=== PATIENT | female | born 1955 | race Caucasian/White ===

== ENCOUNTER 2017-06-11 14:01 | Emergency (ER) | payer OTHER ==
[~2017-06-11] VITALS: Ht 149.9 cm; Wt 104.1 kg
[~2017-06-11 14:01] MED LIST: AMOX875T20 PO; ASPI-99 PO; CALC500T21 PO; CLIN200T PO; LEXA10TA PO; LORT5TAB PO; MAXZ25 PO; OMEP20TA PO; POTA-243 PO; PRED1TAB PO; SIMV40TA PO; SYNT88TA PO; VALI5TAB PO; VITA20003 PO; [UNRECOGNIZED DRUG - CODE] PO
[2017-06-11 14:08] VITALS: BP 155/71; PULSE 91; RESP 18; TEMP 97.8; O2SAT 95
[2017-06-11] MEDS ORDERED: ASPI81CH CHEW (14:39)
[2017-06-11] MEDS ORDERED: ESCI10TA PO (14:39)
[2017-06-11] MEDS ORDERED: OMEP40CA2 PO (14:39)
[2017-06-11] MEDS ORDERED: METF500T PO (14:39)
[2017-06-11] MEDS ORDERED: VENTAER INH (14:39)
[2017-06-11] MEDS ORDERED: BUSP5TAB PO (14:39)
[2017-06-11] MEDS ORDERED: TRIA37.5 PO (14:39)
[2017-06-11] MEDS ORDERED: ATOR1TAB18 PO (14:39)
[2017-06-11] MEDS ORDERED: FLUT50SP EACH NARE (14:39)
[2017-06-11] MEDS ORDERED: FOSA70TA PO (14:39)
[2017-06-11] MEDS ORDERED: FERR200T PO (14:39)
[2017-06-11] MEDS ORDERED: VITA500S3 SL (14:39)
[2017-06-11] MEDS ORDERED: PRED5TAB PO (14:39)
[2017-06-11] MEDS ORDERED: DIPH2.5T14 PO (14:39)
[2017-06-11] MEDS ORDERED: LISI-519 PO (14:39)
[2017-06-11] MEDS ORDERED: MONT10TA4 PO (14:39)
[2017-06-11] MEDS ORDERED: LEVO75TA3 PO (14:39)
--- NOTE | 2017-06-11 15:08 | PD ---
HPI Chief Complaint: Musculoskeletal Complaint Time Seen by Provider: 15:06 Travel History International Travel<30 days: No Contact w/Intl Traveler<30days: No Traveled to known affect area: No History of Present Illness HPI 62-year-old female with PMH of fibromyalgia, asthma, HTN presents to the ED for evaluation of 04/15 left scapular pain. Onset this morning upon waking up. Patient states that she went to bed at night normal as well as woke up multiple times with no problems. She states the pain is worsened by deep breathing and certain motions of the left arm. Denies numbness, tingling, weakness, limitations to range of motion of the arm. Denies chest pain, palpitations, shortness of breath, worsening nonproductive cough. She denies previous injury to the area. No treatment attempt at home. PFSH Past Medical History Arthritis: Yes (RHEUMATOID AND OSTEO) Asthma: Yes Depression: Yes Heart Rhythm Problems: No Cardiac Catheterization: No Cardiovascular Problems: Yes High Cholesterol: No Congestive Heart Failure: No Diabetes: Yes Diminished Hearing: No Hypertension: Yes Immune Disorder: Yes (FIBROMYALGIA) Musculoskeletal: Yes (OSTEOPOROSIS, SPINAL STENOSIS, DEGENERATIVE SPONDYLOSIS, SCIATICA) Respiratory: Yes Myocardial Infarction: No Thyroid Disease: Yes Past Surgical History Coronary Artery Bypass Graft: No Endocrine Surgery: Yes (THYROID REMOVED 1991) Hysterectomy: Yes (PARTIAL) Social History Alcohol Use: No Tobacco Use: No Substance Use: No Allergies-Medications (Allergen,Severity, Reaction): Coded Allergies: diltiazem (Unverified Allergy, Severe, HEART RACING/ANXIETY, 06/11/17) Sulfa (Sulfonamide Antibiotics) (Unverified Allergy, Mild, 06/11/17) metoclopramide (Unverified Allergy, Mild, 06/11/17) Reported Meds & Prescriptions Reported Meds & Active Scripts Active Doxycycline Hyclate 100 Mg Cap 100 Mg PO BID 5 Days Augmentin (Amoxicillin-Clavulanate) 500-125 mg Tab 2 G PO BID 5 Days Reported Feosol (Ferrous Sulfate) 325 Mg (65 Mg Iron) Tab 200 Mg PO DAILY Vitamin B-12 (Cyanocobalamin) 500 Mcg Subl 500 Mcg SL DAILY Fosamax (Alendronate Sodium) 70 Mg Tab 70 Mg PO Q7D Aspirin 81 Mg Chew 81 Mg CHEW DAILY Ventolin Hfa 18 GM Inh (Albuterol Sulfate) 90 Mcg/Act Aer 2 Puff INH Q4-6H PRN Diphenoxylate-Atropine 2.5-0.025 Mg Tab 1 Tab PO BID PRN Buspirone (Buspirone HCl) 5 Mg Tab 5 Mg PO BID Fluticasone Nasal [place] 50 Mcg/Act Naspr 50 Mcg EACH NARE DAILY 50 mcg/spray Lisinopril 5 Mg Tab 5 Mg PO DAILY Atorvastatin (Atorvastatin Calcium) 80 Mg Tab 80 Mg PO HS Montelukast (Montelukast Sodium) 10 Mg Tab 10 Mg PO HS Escitalopram (Escitalopram Oxalate) 10 Mg Tab 10 Mg PO BID Triamterene-Hydrochlorothiazide 37.5-25 Mg Tab 1 Tab PO DAILY Levothyroxine (Levothyroxine Sodium) 75 Mcg Tab 75 Mcg PO DAILY Omeprazole 40 Mg Cap 40 Mg PO DAILY Metformin (Metformin HCl) 500 Mg Tab 500 Mg PO BIDPC With meals Prednisone 5 Mg Tab 6 Mg PO DAILY Review of Systems Except as stated in HPI: all other systems reviewed are Neg Physical Exam Narrative GENERAL: Well-nourished, well-developed obese white female in no acute distress. SKIN: Focused skin assessment warm/dry. HEAD: Normocephalic. EYES: No scleral icterus. No injection or drainage. NECK: Supple, trachea midline. No JVD or lymphadenopathy. CARDIOVASCULAR: Regular rate and rhythm without murmurs, gallops, or rubs. RESPIRATORY: Breath sounds equal bilaterally. No accessory muscle use. GASTROINTESTINAL: Abdomen soft, non-tender, nondistended. MUSCULOSKELETAL: No cyanosis, or edema. FOCUSED LEFT UPPER EXTREMITY EXAM: 2+ radial pulse. No tenderness to palpation over the acromioclavicular joint or the humerus. Patient retains full, active, painless R Silver of the shoulder and elbow joints. Neurovascularly intact. BACK: No obvious deformity. No CVA tenderness. Tender to palpation along the medial aspect of the left scapula. Data Data Last Documented VS Vital Signs Date Time Temp Pulse Resp B/P (MAP) Pulse Ox O2 Delivery O2 Flow Rate FiO2 06/11/17 14:08 97.8 91 18 155/71 (99) 95 Orders Orders Scapula (06/11/17 ) Chest, Pa & Lat (06/11/17 ) MDM Medical Decision Making Medical Screen Exam Complete: Yes Emergency Medical Condition: Yes Differential Diagnosis Fibromyalgia versus muscle spasm versus PNA versus other Narrative Course 62-year-old female with PMH of fibromyalgia, asthma, HTN presents to the ED for evaluation of 7/10 left scapular pain. Onset this morning upon waking up. Pain is worsened by deep breathing and certain motions of the left arm. Denies numbness, tingling, weakness, limitations to range of motion of the arm. Denies chest pain, palpitations, shortness of breath, worsening nonproductive cough. She denies previous injury to the area. Vitals reviewed. Physical exam reveals point tenderness to palpation along the medial aspect of the left scapula. Breath sounds are clear and equal bilaterally. Scapular x-ray reveals focal consolidation in the lung suspicious for pneumonia. CXR AP and lateral reveal bilateral infiltrates left worse than right. This is community acquired pneumonia. Patient has multiple medical interactions. She was prescribed 2 g Augmentin twice a day 5 days. Plus doxycycline 100 mg twice a day 5 days. Treatment based on [facility]. Patient was instructed to stop taking iron supplements during this time. She was encouraged to use antidiarrheal as needed. She instructed to take the medication as prescribed, follow up with her primary care provider. She indicated understanding of instructions and is agreeable to the care plan. The patient is stable and discharged home. Diagnosis Primary Impression: Community acquired pneumonia Qualified Codes: J18.9 - Pneumonia, unspecified organism Referrals: Primary Care Physician Patient Instructions: Community Acquired Pneumonia (ED), General Instructions Additional Instructions: Rest, hydrate. Take all antibiotics as prescribed, even if your symptoms resolve. Stop taking your iron pills while taking doxycycline. Maximum dose of Lomotil is 5 mg daily. Follow up with your primary care provider early this week. Return to the ED for worsening symptoms or any urgent or emergent medical condition. Med/Other Pt SpecificInfo: Prescription(s) given Scripts Doxycycline Hyclate (Doxycycline Hyclate) 100 Mg Cap 100 MG PO BID for Infection for 5 Days, CAP 0 Refills Prov: Nallely Pineda DO 06/11/17 Amoxicillin-Clavulanate (Augmentin) 500-125 mg Tab 2 G PO BID for Infection for 5 Days, TAB 0 Refills Prov: Nallely Pineda DO 06/11/17 Disposition: 01 DISCHARGE HOME Condition: Stable Gretta Delgado Jun 11, 2017 15:08
--- NOTE | 2017-06-11 17:07 | RADRPT ---
EXAM DATE/TIME: 06/11/2017 16:39 [facility] COMPARISON: No previous studies available for comparison. INDICATIONS : Left shoulder pain today. Patient woke up with the pain; no injury. MEDICAL HISTORY : None. SURGICAL HISTORY : None. ENCOUNTER: Initial ACUITY: 1 day PAIN SCORE: 6/10 LOCATION: Left shoulder. FINDINGS: Two view examination of the left scapula demonstrates no evidence of fracture. The glenohumeral and acromioclavicular joints are maintained. Bony mineralization is normal. A suspected faint infiltrate seen laterally in the left mid-upper lung. CONCLUSION: No acute abnormality of the left shoulder but possible pneumonia in the left upper lobe. 2 view chest x-ray examination recommended. Herman Larios MD on June 11, 2017 at 17:04 Board Certified Radiologist. This report was verified electronically.
--- NOTE | 2017-06-11 17:47 | RADRPT ---
EXAM DATE/TIME: 06/11/2017 17:37 [facility] COMPARISON: No previous studies available for comparison. INDICATIONS : Left shoulder pain since this morning. Patient woke up with the pain, no injury. MEDICAL HISTORY : None. SURGICAL HISTORY : None. ENCOUNTER: Initial ACUITY: 1 day PAIN SCORE: 6/10 LOCATION: Left posterior shoulder. FINDINGS: There is mild infiltrate in the left mid and lower lung. Minimal parenchymal opacity at the right michael g base. No evidence of effusion. Cardiac contours are grossly satisfactory. Thoracic skeleton is inta ct. CONCLUSION: Bilateral infiltrates, left worse than right Herman Escalante MD on June 11, 2017 at 17:45 Board Certified Radiologist. This report was verified electronically.
[2017-06-11] MEDS ORDERED: LEVOFLOXACIN 750 MG TAB PO ONE (18:00)
[2017-06-11] MEDS ORDERED: DOXY100C PO (18:23)
[2017-06-11] MEDS ORDERED: AUGM500T7 PO (18:23)
== END 2017-06-11 18:29 | disposition home or self-care (01) ==
LOC: PHEFT 14:01
DX: J18.9 Pneumonia, unspecified organism (principal); M79.7 Fibromyalgia; I10 Essential (primary) hypertension; J45.909 Unspecified asthma, uncomplicated; E11.9 Type 2 diabetes mellitus without complications; M47.9 Spondylosis, unspecified; M81.0 Age-related osteoporosis without current pathological fracture; E07.9 Disorder of thyroid, unspecified; Z79.899 Other long term (current) drug therapy
CPT/HCPCS: 71020; 73010; 99284

== ENCOUNTER 2018-07-17 11:25 | Observation (INO) ==
[2018-07-17] MEDS ORDERED: MethylPREDNISolone Sod Succinate Inj 125 MG/2 ML Vial IV.PUSH ONE (11:53)
--- NOTE | 2018-07-17 12:01 | ED ---
HPI General Chief Complaint: Respiratory Symptoms Stated Complaint: SOB/poss pneumonia x 1 week Time Seen by Provider: 07/17/18 11:46 Source: patient Mode of arrival: ambulatory Limitations: no limitations History of Present Illness MD Complaint: Reports shortness of breath Onset (ago): day(s) (3) Context: Reports recent illness (She states that it started with a GI illness including nausea, vomiting and diarrhea. Onset of the symptoms was 5 days ago.) Consistency/Duration: constant and progressively worsening Relieving factors: nothing Exacerbating factors: nothing Known history of: Reports asthma Associated symptoms: Reports fever, cough, wheezing, sputum production and other (Dyspnea on exertion); Denies chest pain Treatment prior to arrival: Reports other (Levaquin for the last 2 days) Related Data Home Medications Medication Instructions Recorded Confirmed alendronate 1 tab PO WEEKLY 07/17/18 07/17/18 aspirin [Aspirin Low Dose] 1 tab PO DAILY 07/17/18 07/17/18 atorvastatin 1 tab PO DAILY 07/17/18 07/17/18 buspirone 1 tab PO BID 07/17/18 07/17/18 diphenoxylate-atropine 1 tab PO BID PRN 07/17/18 07/17/18 escitalopram oxalate 10 mg PO DAILY 07/17/18 07/17/18 fluticasone 1 spray INHALATION DAILY 07/17/18 07/17/18 isosorbide mononitrate 1 tab PO DAILY 07/17/18 07/17/18 levofloxacin [Levaquin] 500 mg PO DAILY 07/17/18 07/17/18 levothyroxine 1 tab PO DAILY 07/17/18 07/17/18 lisinopril 2.5 mg PO DAILY 07/17/18 07/17/18 metformin 1 tab PO BID 07/17/18 07/17/18 montelukast 10 mg PO QPM 07/17/18 07/17/18 nitroglycerin [Nitrostat] 1 tab SUBLINGUAL DAILY PRN 07/17/18 07/17/18 omeprazole 1 cap PO DAILY 07/17/18 07/17/18 prednisone 6 mg PO DAILY 07/17/18 07/17/18 triamterene-hydrochlorothiazid 1 tab PO DAILY 07/17/18 07/17/18 Allergies Allergy/AdvReac Type Severity Reaction Status Date / Time diltiazem Allergy Severe HEART Verified 07/17/18 11:48 RACING/ANXIETY metoclopramide Allergy Mild Shortness Verified 07/17/18 11:48 of Breath Sulfa (Sulfonamide Allergy Mild Hives Verified 07/17/18 11:48 Antibiotics) Review of Systems ROS: all other systems reviewed are negative [facility] Medical History Medical History Arthritis (Acute) Asthma (Acute) Coronary artery disease (Acute) Depression (Acute) Diabetes (Acute) Fibromyalgia (Acute) Gastroparesis (Acute) H/O: hysterectomy (Acute) High cholesterol (Acute) Hypertension (Acute) Hypothyroid (Acute) IBS (irritable bowel syndrome) (Acute) Surgical History Surgical History H/O elbow surgery (Acute) Hx of cholecystectomy (Acute) S/P gastric surgery (Acute) Social History Social History Substance History: No History of Abuse Second Hand Smoke Exposure: No Smoking Status: Former smoker How Often Do You Have a Drink Containing Alcohol: Never Recent Travel in [facility] within the Last 8 Weeks: No Recent Out of Country Travel within the Last 8 Weeks: No Immunization History Tetanus Immunization: Unsure Exam Const General: cooperative, healthy appearing, comfortable, no acute distress, well developed and well groomed Orientation: alert, awake and oriented x3 HENMT Head: normal to inspection, normocephalic and atraumatic Eyes Alignment and Position: alignment normal Conjunctivae: conjunctivae normal Sclera: sclerae normal EOM: EOM intact bilaterally Neck Neck: normal visual inspection and full ROM Chest Chest: normal inspection of the chest Resp Effort & Inspection: normal respiratory effort, able to speak in complete sentences, audible wheezes and cough Auscultation: diminished lung sounds and wheezes (I/E) Cardio Rate: tachycardic Rhythm: regular rhythm GI Inspection: normal to inspection Palpation: soft Back/Spine/Pelvis Cervical Spine: cervical ROM normal Thoracic/Lumbar Spine: thoraco-lumbar ROM normal Skin General: no rashes or lesions noted and turgor normal Neuro General: alert, awake, oriented x3, moves all extremities and CN's II-XI intact bilaterally Extrem General: normal to inspection and full ROM Psych Appearance: grossly normal Mental Status: mental status grossly normal Speech and Movement: speech and movement normal Mood: congruent mood Affect: normal affect Attitude: cooperative Thought Process: normal Thought Content: normal Judgment: judgment good Course Hospital Course: The patient has been rechecked several times here in the emergency department. She continues to have diffuse I&E wheezing. Her air movement is improved but she continues to have a modest hypoxia at about 90%. The hypoxia is acutely worsened just by the act of sitting up. She dropped down into the upper 70s following neb treatments when I asked her to sit up for recheck. She needs to be admitted to the hospital for further respiratory therapy. Consultations Consultation #1: Dr. Silver mckee admit Time: 14:13 Initial Documented Vital Signs Temperature 98.3 F 07/17/18 11:29 Pulse Rate 126 H 07/17/18 11:29 Respiratory Rate 20 07/17/18 11:29 Blood Pressure 180/80 H 07/17/18 11:29 Pulse Oximetry 95 07/17/18 11:29 Last Documented Vital Signs Temperature 98.3 F 07/17/18 11:29 Pulse Rate 106 H 07/17/18 13:12 Respiratory Rate 20 07/17/18 13:12 Blood Pressure 147/77 H 07/17/18 12:18 Pulse Oximetry 97 07/17/18 13:02 Critical Care Time Critical Care Time: Yes Total Critical Care Time: 45 Attestation: Time to perform other separately billable procedures was not included in the critical care time. My time did not include minutes spent treating any other patients simultaneously or on activities that did not directly contribute to the patient's treatment. The services I provided to this patient were to treat and/or prevent clinically significant deterioration due to respiratory distress with hypoxia and bronchospasm I provided critical care services requiring my management, as noted below: Chart data review, documentation time, medication orders and management, vital sign assessments/reviewing monitor data, ordering and reviewing lab tests, ordering and interpreting/reviewing x-rays and diagnostic studies, care of the patient and discussion of the patient with the admitting physicians Medical Decision Making MDM Narrative Medical decision making narrative: Patient presents complaining with cough and shortness of breath. She has a history of asthma. She has audible wheezing on exam. She will be treated with 3 duo nebs and Solu-Medrol. Pneumonia workup is in process. I will also check a BNP. Medical Screen Exam Complete: Yes Emergency Medical Condition: Yes Differential Diagnosis Differential Diagnosis: Differential diagnosis of dyspnea includes but is not limited to congestive heart failure, pneumonia, wheezing, pneumothorax, pulmonary embolism Medical Records Medical records reviewed: Yes I reviewed the patient's medical records. History of asthma and previous community-acquired pneumonia which was treated as an outpatient. Lab Data Lab results reviewed: Yes I reviewed the patient's lab results. Result diagrams: 07/17/18 12:00 07/17/18 12:00 Lab Results 07/17/18 07/17/18 07/17/18 Range/Units 12:00 12:00 12:00 CBC w Diff Auto diff final WBC 5.8 (4.0-11.0) th/mm3 RBC 4.46 (4.00-5.30) mil/mm3 Hgb 13.9 (11.6-15.3) gm/dL Hct 41.1 (35.0-46.0) % MCV 92.1 (80.0-100.0) fL MCH 31.2 (27.0-34.0) pg MCHC 33.8 (32.0-36.0) % RDW 13.6 (11.6-17.2) % Plt Count 226 (150-450) th/mm3 MPV 7.2 (7.0-11.0) fL Neut % (Auto) 41.4 (16.0-70.0) % Lymph % (Auto) 42.8 (9.0-44.0) % [place] % (Auto) 11.2 H (0.0-8.0) % Eos % (Auto) 3.6 (0.0-4.0) % Baso % (Auto) 1.0 (0.0-2.0) % Neut # (Auto) 2.4 (1.8-7.7) th/mm3 Lymph # (Auto) 2.5 (1.0-4.8) th/mm3 [place] # (Auto) 0.6 (0.0-0.9) th/mm3 Eos # (Auto) 0.2 (0.0-0.4) th/mm3 Baso # (Auto) 0.1 (0.0-0.2) th/mm3 WBC Differential . Differential Comment . Sodium 142 (136-145) meq/L Potassium 3.0 L (3.5-5.1) meq/L Chloride 102 (98-107) meq/L Carbon Dioxide 27.7 (21.0-32.0) meq/L Anion Gap 12 (5-15) meq/L BUN 11 (7-18) mg/dL Creatinine 1.40 H (0.50-1.00) mg/dL Estimated GFR 38 L (>89) mL/min Random Glucose 150 H (74-106) mg/dL Lactic Acid (0.4-2.0) mmol/L Calcium 6.7 L* (8.5-10.1) mg/dL Prot Corrected Calcium 7.1 L* (8.5-10.1) mg/dL Troponin I Less than 0.02 L (0.02-0.05) ng/mL B-Natriuretic Peptide 20 (0-100) pg/mL Total Protein 6.4 (6.4-8.2) g/dL 07/17/18 Range/Units 12:00 CBC w Diff WBC (4.0-11.0) th/mm3 RBC (4.00-5.30) mil/mm3 Hgb (11.6-15.3) gm/dL Hct (35.0-46.0) % MCV (80.0-100.0) fL MCH (27.0-34.0) pg MCHC (32.0-36.0) % RDW (11.6-17.2) % Plt Count (150-450) th/mm3 MPV (7.0-11.0) fL Neut % (Auto) (16.0-70.0) % Lymph % (Auto) (9.0-44.0) % [place] % (Auto) (0.0-8.0) % Eos % (Auto) (0.0-4.0) % Baso % (Auto) (0.0-2.0) % Neut # (Auto) (1.8-7.7) th/mm3 Lymph # (Auto) (1.0-4.8) th/mm3 [place] # (Auto) (0.0-0.9) th/mm3 Eos # (Auto) (0.0-0.4) th/mm3 Baso # (Auto) (0.0-0.2) th/mm3 WBC Differential Differential Comment Sodium (136-145) meq/L Potassium (3.5-5.1) meq/L Chloride (98-107) meq/L Carbon Dioxide (21.0-32.0) meq/L Anion Gap (5-15) meq/L BUN (7-18) mg/dL Creatinine (0.50-1.00) mg/dL Estimated GFR (>89) mL/min Random Glucose (74-106) mg/dL Lactic Acid 3.9 H (0.4-2.0) mmol/L Calcium (8.5-10.1) mg/dL Prot Corrected Calcium (8.5-10.1) mg/dL Troponin I (0.02-0.05) ng/mL B-Natriuretic Peptide (0-100) pg/mL Total Protein (6.4-8.2) g/dL Imaging Data Attestation: I personally reviewed and interpreted this imaging study as follows : Radiologist's impression: Chest X-Ray 07/17/18 11:53 CONCLUSION: 1. Suspect artifactually increased opacity in the left lung base. If patient has physical exam findings corresponding to the left lower lung riggs, consider formal PA and lateral views of the chest. Discharge Plan Discharge Disposition Patient Disposition: 30 Still Patient Discharge Details Diagnosis: Acute respiratory distress, Bronchitis, Hypoxia Physicians Team ED Provider: Letty Jaramillo Primary Care Provider: UNKNOWN, Rxs /Orders / Referrals /Forms Prescriptions: No Action metformin 500 mg Tablet 1 tab PO BID RF: 0 fluticasone 50 mcg/actuation Blister With Device 1 spray Inhalation DAILY RF: 0 atorvastatin 80 mg Tablet 1 tab PO DAILY RF: 0 isosorbide mononitrate 30 mg Tablet Extended Release 24 Hr 1 tab PO DAILY RF: 0 alendronate 70 mg Tablet 1 tab PO WEEKLY RF: 0 diphenoxylate-atropine 2.5-0.025 mg Tablet 1 tab PO BID PRN (Reason: Diarrhea) RF: 0 omeprazole 40 mg Capsule,Delayed Release(Dr/Ec) 1 cap PO DAILY RF: 0 aspirin [Aspirin Low Dose] 81 mg Tablet,Delayed Release (Dr/Ec) 1 tab PO DAILY RF: 0 levothyroxine 88 mcg Tablet 1 tab PO DAILY RF: 0 buspirone 10 mg Tablet 1 tab PO BID RF: 0 nitroglycerin [Nitrostat] 0.4 mg Tablet, Sublingual 1 tab Sublingual DAILY PRN (Reason: Chest Pain) RF: 0 triamterene-hydrochlorothiazid 37.5-25 mg Tablet 1 tab PO DAILY RF: 0 montelukast 10 mg Tablet 10 mg PO QPM RF: 0 lisinopril 2.5 mg Tablet 2.5 mg PO DAILY RF: 0 escitalopram oxalate 10 mg Tablet 10 mg PO DAILY RF: 0 prednisone 6 mg PO DAILY RF: 0 levofloxacin [Levaquin] 500 mg Tablet 500 mg PO DAILY RF: 0 Discharge Interventions Interventions: Vital Signs Last Done: 07/17/18 12:18 Status ED Status: With Doctor
[2018-07-17 12:10] LABS: Baso # (Auto) 0.1 th/mm3 (0.0-0.2); Eos # (Auto) 0.2 th/mm3 (0.0-0.4); Eos % (Auto) 3.6 % (0.0-4.0); Hematocrit 41.1 % (35.0-46.0); Hemoglobin 13.9 gm/dL (11.6-15.3); Lymph # (Auto) 2.5 th/mm3 (1.0-4.8); Lymph % (Auto) 42.8 % (9.0-44.0); Mean Corpuscular HGB Conc 33.8 % (32.0-36.0); Mean Corpuscular Hemoglobin 31.2 pg (27.0-34.0); Mean Corpuscular Volume 92.1 fL (80.0-100.0); Mean Platelet Volume 7.2 fL (7.0-11.0); Mono # (Auto) 0.6 th/mm3 (0.0-0.9); Mono % (Auto) 11.2 % (0.0-8.0); Neut # (Auto) 2.4 th/mm3 (1.8-7.7); Neut % (Auto) 41.4 % (16.0-70.0); Platelet Count 226 th/mm3 (150-450); Red Blood Count 4.46 mil/mm3 (4.00-5.30); Red Cell Distribution Width 13.6 % (11.6-17.2); White Blood Count 5.8 th/mm3 (4.0-11.0)
[2018-07-17 12:17] LABS: Chloride 102 meq/L (98-107); Sodium 142 meq/L (136-145)
[2018-07-17 12:51] LABS: Anion Gap 12 meq/L (5-15); Blood Urea Nitrogen 11 mg/dL (7-18); Calcium 6.7 mg/dL (8.5-10.1); Carbon Dioxide 27.7 meq/L (21.0-32.0); Glomerular Filtration Rate 38 mL/min (>89); Glucose,Random 150 mg/dL (74-106)
--- NOTE | 2018-07-17 13:02 | XR ---
EXAM DATE: 07/17/2018 11:53 AM EDT AGE/SEX: 63 years / Female INDICATIONS: Short of breath. Flu like symptoms x 6 days. Patient states she becomes winded walking across room. CLINICAL DATA: This is the patient's initial encounter. Patient reports that signs and symptoms have been present for 4 - 6 days and indicates a pain score of 0/10. MEDICAL/SURGICAL HISTORY: Hypercholesterolemia. Gastroparesis. Irritable bowel syndrome. Art hrits. Asthma. CAD. Diabetes. Fibromyalgia. Hypertension. Hypothyroid. Hysterectomy. Cholecystectom y. COMPARISON: POI, XR CHEST PA AND LAT, 07/19/2017. . FINDINGS: Mild increased opacity at the left lung base likely artifactual from breast shadow and patient positi oning. Otherwise, no new focal pleural or parenchymal opacities. The cardiomediastinal contours are u nremarkable. Osseous structures are intact. CONCLUSION: 1. Suspect artifactually increased opacity in the left lung base. If patient has physical exam findi ngs corresponding to the left lower lung riggs, consider formal PA and lateral views of the chest. Electronically signed by: Prudencio Barlow MD 07/17/2018 1:01 PM EDT
[2018-07-17 13:23] LABS: Total Protein 6.4 g/dL (6.4-8.2)
[2018-07-17] MEDS ORDERED: Acetaminophen 325 MG Tablet PO PRN (14:29)
[2018-07-17] MEDS ORDERED: Dextrose 50% in Water 50 ML Vial IV.PUSH PRN (14:50)
--- NOTE | 2018-07-17 15:01 | P.HP ---
History of Present Illness Primary Care Physician: UNKNOWN Chief Complaint: Shortness of breath History of Present Illness: 63-year-old female for past medical history of diabetes, inflammatory bowel disease, inflammatory arthritis and was recently started on p.o. antibiotic for suspected pneumonia since July 15, 2018 presented to the ED for evaluation of worsening respiratory failure with increasing shortness of breath associated with wheezing and non-productive. Patient states, she was prescribed Levaquin on day 9 for suspected pneumonia. She initially got sick since Saturday, July 12, 2018. She is suspected flulike symptoms however was diagnosed with possible pneumonia by her PCP who prescribed Levaquin. Patient presented to the ED today because of increasing shortness of breath, generalized fatigue and lack of energy. She denies any febrile episode. While in the ED, despite albuterol treatment, patient continued to have significant shortness of breath. She was also found to be hypoxemic - Diagnosis (1) Asthma exacerbation (2) COPD exacerbation (3) Acute respiratory distress (4) Hypoxia Inpatient Certification: I certify that the inpatient services were ordered in accordance with Medicare regulations governing the order. This includes certification that hospital inpatient services are reasonable and necessary and in the case of services not specified as inpatient-only under 42 CFR 419.22(n), that they are appropriately provided as inpatient services in accordance to with the 2-midnight benchmark under 43 CFR 412.3(e) Review of Systems All other systems reviewed negative except as stated in HPI PMFSH - History History Provided By: Patient - Medical History Medical History: Medical History (Last Reviewed 07/17/18 @ 11:58 by Letty Jaramillo) Arthritis Asthma Coronary artery disease Depression Diabetes Fibromyalgia Gastroparesis H/O: hysterectomy High cholesterol Hypertension Hypothyroid IBS (irritable bowel syndrome) - Surgical History Surgical History: Surgical History (Last Updated 07/17/18 @ 11:52 by Cadence Velazquez RN) H/O elbow surgery Hx of cholecystectomy S/P gastric surgery - Family History Family History: Family History (Last Updated 07/17/18 @ 14:57 by Ronal Sheppard MD) Other No history of heart disease - Tobacco History Second Hand Smoke Exposure: No Tobacco Use In Past 30 Days: No Smoking Status: Former smoker - Alcohol History How Often Do You Have a Drink Containing Alcohol: Never - Substance Use History Substance History: No History of Abuse - Travel History Recent Travel in the [place] Within the Last 8 Weeks: No Recent Travel Out of the Country Within the Last 8 Weeks: No - Immunization History Tetanus Immunization: Unsure Medications and Allergies Active Medications: Active Medications Acetaminophen (Tylenol) 650 mg PO Q4H PRN PRN Reason: Temp > 100.4 Al Hydroxide/Mg Hydroxide (Milk Of Magntracey Liq) 30 ml PO Q12H PRN PRN Reason: Mild Constipation Albuterol (Duoneb Neb (Mili)) 1 ampul NEB Q6HR WHILE AWAKE NEB MILI Albuterol (Duoneb Neb (Prn)) 1 ampul NEB Q2HR NEB PRN PRN Reason: SHORTNESS OF BREATH Albuterol (Duoneb Neb (Mili)) 1 ampul NEB Q15M MILI Stop: 07/17/18 15:16 Aspirin (Ecotrin) 81 mg PO DAILY [facility] Atorvastatin Calcium (Lipitor) 80 mg PO DAILY [facility] Azithromycin (Zithromax) 250 mg PO DAILY [facility] Budesonide/Formoterol Fumarate (Symbicort 160/4.5 Mcg Inh) 2 puff INH BID [facility] Buspirone HCl (Buspar) 10 mg PO BID [facility] Dextrose (D50w Vial) 50 ml IV.PUSH UNSCH PRN PRN Reason: PER HYPOGLYCEMIA PROTOCOL Escitalopram Oxalate (Lexapro) 10 mg PO DAILY [facility] Glucagon (Glucagon Inj) 1 mg OTHER PRN PRN PRN Reason: for Hypoglycemia Protocol Guaifenesin (Mucinex Er) 600 mg PO BID [facility] Insulin Aspart (Novolog Insulin Correctional Sugar Inj) 0 unit SQ ACHS MILI; Protocol Isosorbide Mononitrate (Imdur) 30 mg PO DAILY [facility] Levothyroxine Sodium (Synthroid) 88 mcg PO DAILY [facility] Metformin HCl (Glucophage) 500 mg PO BID [facility] Methylprednisolone Sodium Succinate (Solumedrol Inj) 40 mg IV.PUSH Q8HR [facility] Montelukast Sodium (Singulair) 10 mg PO QPM [facility] Non-Formulary Medication (Fluticasone [Fluticasone]) 1 spray INHALATION DAILY [facility] Non-Formulary Medication (Omeprazole [Omeprazole]) 1 cap PO DAILY [facility] Non-Formulary Medication (Lisinopril [Lisinopril]) 2.5 mg PO DAILY [facility] Ondansetron HCl (Zofran Inj) 4 mg IV.PUSH Q6H PRN PRN Reason: NAUSEA OR VOMITING Tiotropium [place] (Spiriva 18 Mcg Inh) 18 mcg INH DAILY [facility] Triamterene/HCTZ (Maxzide 37.5 Mg-25 Mg) 1 tab PO DAILY [facility] Allergies Allergy/AdvReac Type Severity Reaction Status Date / Time diltiazem Allergy Severe HEART Verified 07/17/18 11:48 RACING/ANXIETY metoclopramide Allergy Mild Shortness Verified 07/17/18 11:48 of Breath Sulfa (Sulfonamide Allergy Mild Hives Verified 07/17/18 11:48 Antibiotics) Home Medications Medication Instructions Recorded Confirmed Type alendronate 1 tab PO WEEKLY 07/17/18 07/17/18 History aspirin [Aspirin Low Dose] 1 tab PO DAILY 07/17/18 07/17/18 History atorvastatin 1 tab PO DAILY 07/17/18 07/17/18 History buspirone 1 tab PO BID 07/17/18 07/17/18 History diphenoxylate-atropine 1 tab PO BID PRN 07/17/18 07/17/18 History escitalopram oxalate 10 mg PO DAILY 07/17/18 07/17/18 History fluticasone 1 spray INHALATION DAILY 07/17/18 07/17/18 History isosorbide mononitrate 1 tab PO DAILY 07/17/18 07/17/18 History levofloxacin [Levaquin] 500 mg PO DAILY 07/17/18 07/17/18 History levothyroxine 1 tab PO DAILY 07/17/18 07/17/18 History lisinopril 2.5 mg PO DAILY 07/17/18 07/17/18 History metformin 1 tab PO BID 07/17/18 07/17/18 History montelukast 10 mg PO QPM 07/17/18 07/17/18 History nitroglycerin [Nitrostat] 1 tab SUBLINGUAL DAILY PRN 07/17/18 07/17/18 History omeprazole 1 cap PO DAILY 07/17/18 07/17/18 History prednisone 6 mg PO DAILY 07/17/18 07/17/18 History triamterene-hydrochlorothiazid 1 tab PO DAILY 07/17/18 07/17/18 History Exam Vital signs: Vital Signs 07/17/18 11:29 07/17/18 12:10 07/17/18 12:18 Temperature 98.3 F Pulse Rate 126 H 85 95 H Respiratory Rate 20 20 20 Blood Pressure 180/80 H 149/75 H 147/77 H Pulse Oximetry 95 95 96 07/17/18 12:20 07/17/18 12:31 07/17/18 12:49 Temperature Pulse Rate 98 H 99 H 106 H Respiratory Rate 18 20 18 Blood Pressure Pulse Oximetry 07/17/18 13:00 07/17/18 13:02 07/17/18 13:12 Temperature Pulse Rate 106 H Respiratory Rate 20 Blood Pressure Pulse Oximetry 89 L 97 Intake & Output 07/16/18 07/17/18 07/17/18 18:59 06:59 18:59 Weight 92 kg Other: # Voids 1 Narrative: GENERAL: NAD SKIN: Warm and dry. HEAD: Atraumatic. Normocephalic. EYES: Pupils equal and round. No scleral icterus. No injection or drainage. ENT: No nasal bleeding or discharge. Mucous membranes pink and moist. NECK: Trachea midline. No JVD. CARDIOVASCULAR: Regular rate and rhythm. RESPIRATORY: No accessory muscle use. Clear to auscultation. Breath sounds decrease bilaterally. +exp bilateral wheezing GASTROINTESTINAL: Abdomen soft, non-tender, nondistended. Hepatic and splenic margins not palpable. MUSCULOSKELETAL: Extremities without clubbing, cyanosis, or edema. No obvious deformities. NEUROLOGICAL: Awake and alert. No obvious cranial nerve deficits. Motor grossly within normal limits. Five out of 5 muscle strength in the arms and legs. Normal speech. PSYCHIATRIC: Appropriate mood and affect; insight and judgment normal. Results - Labs CBC & Chem 7: 07/17/18 12:00 07/17/18 12:00 Labs: Laboratory Results - last 24 hr 07/17/18 07/17/18 07/17/18 12:00 12:00 12:00 CBC w Diff Auto diff final WBC 5.8 RBC 4.46 Hgb 13.9 Hct 41.1 MCV 92.1 MCH 31.2 MCHC 33.8 RDW 13.6 Plt Count 226 MPV 7.2 Neut % (Auto) 41.4 Lymph % (Auto) 42.8 Stephenson % (Auto) 11.2 H Eos % (Auto) 3.6 Baso % (Auto) 1.0 Neut # (Auto) 2.4 Lymph # (Auto) 2.5 Stephenson # (Auto) 0.6 Eos # (Auto) 0.2 Baso # (Auto) 0.1 WBC Differential . Differential Comment . Sodium 142 Potassium 3.0 L Chloride 102 Carbon Dioxide 27.7 Anion Gap 12 BUN 11 Creatinine 1.40 H Estimated GFR 38 L Random Glucose 150 H Lactic Acid Calcium 6.7 L* Prot Corrected Calcium 7.1 L* Troponin I Less than 0.02 L B-Natriuretic Peptide 20 Total Protein 6.4 07/17/18 07/17/18 12:00 14:20 CBC w Diff WBC RBC Hgb Hct MCV MCH MCHC RDW Plt Count MPV Neut % (Auto) Lymph % (Auto) Stephenson % (Auto) Eos % (Auto) Baso % (Auto) Neut # (Auto) Lymph # (Auto) Stephenson # (Auto) Eos # (Auto) Baso # (Auto) WBC Differential Differential Comment Sodium Potassium Chloride Carbon Dioxide Anion Gap BUN Creatinine Estimated GFR Random Glucose Lactic Acid 3.9 H 4.8 H* Calcium Prot Corrected Calcium Troponin I B-Natriuretic Peptide Total Protein - Imaging Impressions Chest X-Ray 07/17/18 11:53 CONCLUSION: 1. Suspect artifactually increased opacity in the left lung base. If patient has physical exam findings corresponding to the left lower lung riggs, consider formal PA and lateral views of the chest. Caprini VTE Risk Assessment Caprini VTE Risk Assessment: Moderate/High Risk (score >= 2) Caprini Risk Assessment Model: Point Value = 1 Point Value = 2 Point Value = 3 Point Value = 5 Age 41-60 Minor surgery BMI > 25 kg/m2 Swollen legs Varicose veins or History of unexplained or recurrent spontaneous Oral contraceptives or hormone replacement Sepsis (< 1 month) Serious lung disease, including pneumonia (< 1 month) Abnormal pulmonary function Acute myocardial infarction Congestive heart failure (< 1 month) History of inflammatory bowel disease Medical patient at bed rest Age 61-74 Arthroscopic surgery Major open surgery (> 45 min) Laparoscopic surgery (> 45 min) Malignancy Confined to bed (> 72 hours) Immobilizing plaster cast Central venous access Age >= 75 History of VTE Family history of VTE Factor V Leiden Prothrombin [id number] Lupus anticoagulant Anticardiolipin antibodies Elevated serum homocysteine Heparin-induced thrombocytopenia Other congenital or acquired thrombophilia Stroke (< 1 month) Elective arthroplasty Hip, pelvis, or leg fracture Acute spinal cord injury (< 1 month) Prophylaxis Regimen: Total Risk Factor Score Risk Level Prophylaxis Regimen 0-1 Low Early ambulation 2 Moderate Order ONE of the following: *Sequential Compression Device (SCD) *Heparin 5000 units SQ BID 3-4 Higher Order ONE of the following medications: *Heparin 5000 units SQ TID *Enoxaparin/Lovenox 40 mg SQ daily (WT < 150 kg, CrCl > 30 mL/min) *Enoxaparin/Lovenox 30 mg SQ daily (WT < 150 kg, CrCl > 10-29 mL/min) *Enoxaparin/Lovenox 30 mg SQ BID (WT < 150 kg, CrCl > 30 mL/min) AND/OR *Sequential Compression Device (SCD) 5 or more Highest Order ONE of the following medications: *Heparin 5000 units SQ TID (Preferred with Epidurals) *Enoxaparin/Lovenox 40 mg SQ daily (WT < 150 kg, CrCl > 30 mL/min) *Enoxaparin/Lovenox 30 mg SQ daily (WT < 150 kg, CrCl > 10-29 mL/min) *Enoxaparin/Lovenox 30 mg SQ BID (WT < 150 kg, CrCl > 30 mL/min) AND *Sequential Compression Device (SCD) Assessment and Plan - Assessment (1) Asthma exacerbation Code(s): J45.901 - Unspecified asthma with (acute) exacerbation Status: Acute (2) COPD exacerbation Code(s): J44.1 - Chronic obstructive pulmonary disease with (acute) exacerbation Status: Acute (3) Acute respiratory distress Code(s): R06.03 - Acute respiratory distress Status: Acute (4) Hypoxia Code(s): R09.02 - Hypoxemia Status: Acute - Plan 63-year-old female with Respiratory distress Asthma/COPD exacerbation Hypoxemia X-ray noted and reviewed by me with finding of Suspect artifactually increased opacity in the left lung base Status post Solu-Medrol 125 mg IV x1 in ED, will start Solu-Medrol 40 mg IV every 8 hour Start Spiriva,Symbicort, DuoNeb scheduled and as needed, Mucinex, azithromycin 2050 mg daily Maintain oxygen saturation above 92% Perform walk test prior to discharge Lactic acidosis Patient with recent diagnosis of CAP Repeat Lactic acid Hypokalemia Will give potassium supplement 40 mEq x1 now and monitor electrolyte Recent diagnosis of community-acquired pneumonia Will continue treatment with antibiotic History of diabetes type 2 Resume metformin, and start medium sliding scale insulin Other chronic medical conditions Resume outpatient medications DVT prophylaxis: Bilateral SCDs
[2018-07-17 15:10] LABS: ABG Base Excess 0.6 mmol/L (-2-2); ABG PCO2 38 mmHg (38-42); ABG PO2 76 mmHg (61-120)
[2018-07-17] MEDS: Azithromycin 250 MG Tablet PO SCH (15:51)
[2018-07-17] MEDS: Insulin NovoLOG Aspart Correctional Sugar Inj SQ SCH ×2 (17:03→22:29)
[2018-07-17] MEDS: Montelukast 10 MG Tablet PO SCH (17:04)
--- NOTE | 2018-07-17 18:10 | MB ---
cc: Hong Graf MD, Eric MD DATE: 07/17/2018 REQUESTING PHYSICIAN: Ronal Sheppard MD REASON FOR CONSULTATION: Bronchial asthma exacerbation and shortness of breath. HISTORY OF PRESENT ILLNESS: Ms. Huggins is a pleasant 63-year-old female who is known to me from the office. She has a history of bronchial asthma, history of diabetes mellitus, inflammatory bowel disease and arthritis. The patient was not feeling well for the last 5 days or so. She had flu-like symptoms. She tried to take [id number] medications and did not get better. Saturday, she went to see her primary care physician and was started on Levaquin. She still did not feel better and was getting worse and getting more short of breath. Because of the symptoms, she came to the hospital. LABORATORY WORKUP: She had a workup done in the hospital. WBC 25.8, hemoglobin 13.9, hematocrit 41.1, MCV 92, platelet count 226. Blood gas, pH 7.43, pCO2 of 38, pO2 of 76, bicarbonate 25. Sodium 142, potassium 3.0, chloride 100, CO2 of 27, BUN 11, creatinine 1.40. PAST MEDICAL HISTORY: Significant for a history of bronchial asthma, hypertension, inflammatory bowel disease, arthritis. MEDICATIONS: She is currently takin. Acetaminophen. 2. Nebulizer treatment with DuoNeb. 3. Ecotrin 81 mg a day. 4. Lipitor 80 mg a day. 5. Zithromax 500 mg a day. 6. Symbicort twice a day. 7. BuSpar 10 mg twice a day. 8. Lexapro 10 mg a day. 9. Insulin. 10. Levothyroxine 88 mcg a day. 11. Isosorbide 30 mg a day. 12. Lisinopril 2.5 mg a day. 13. Metformin 500 mg twice a day. 14. Solu-Medrol 40 mg q.8 hours. 15. Singulair 10 mg a day. 16. Protonix 40 mg a day. 17. Spiriva once a day. 18. Maxzide 37.5. PHYSICAL EXAMINATION: GENERAL: A well-developed, well-nourished female not in acute distress. VITAL SIGNS: Blood pressure 118/69, heart rate 130, respirations 22, temperature 98.2. HEENT: Pupils are equal and reactive to light. Oral mucosa and nasal mucosa are normal. NECK: Supple. No JVD noted. CHEST: She has end-expiratory rhonchi. CARDIOVASCULAR: S1, S2 normal. ABDOMEN: Soft, nontender, nondistended. Bowel sounds are present. EXTREMITIES: No edema. IMPRESSION: 1. Chronic obstructive pulmonary disease with exacerbation. 2. Bronchitis. 3. Type 2 diabetes mellitus. 4. Hypertension. PLAN: We will give IV Solu-Medrol. Continue antibiotic, aerosol treatment with albuterol and Atrovent, supplemental oxygen. Once she gets better, we will check a pulmonary function study and evaluate her for home oxygen therapy. We will give her heparin 5000 units q.8 hours for DVT prophylaxis. Further treatment will depend upon her course in the hospital. Thank you, Dr. Sheppard, for this consult. MD DAVE Morris/comfort , 05:02 PM , 05:11 PM
[2018-07-17] MEDS: MethylPREDNISolone Sod Succinate Inj 40 MG/ML Vial IV.PUSH SCH (22:28)
[2018-07-17] MEDS: guaiFENesin 600 MG ER Tablet PO SCH (22:29)
[2018-07-17] MEDS: Heparin - SQ 10,000 UNITS/ML Vial SQ SCH (22:30)
[2018-07-17] MEDS: Budesonide-Formoterol 160/4.5 MCG 6 GM Inhaler INH SCH (22:30)
[2018-07-18] MEDS: Heparin - SQ 10,000 UNITS/ML Vial SQ SCH ×3 (04:59→22:54)
[2018-07-18] MEDS: MethylPREDNISolone Sod Succinate Inj 40 MG/ML Vial IV.PUSH SCH ×3 (06:36→22:53)
[2018-07-18] MEDS: Levothyroxine 88 MCG Tablet PO SCH (06:36)
[2018-07-18 06:54] LABS: Baso % (Auto) 0.2 % (0.0-2.0); Hematocrit 38.4 % (35.0-46.0); Hemoglobin 13.4 gm/dL (11.6-15.3); Lymph # (Auto) 1.7 th/mm3 (1.0-4.8); Lymph % (Auto) 18.4 % (9.0-44.0); Mean Corpuscular Hemoglobin 31.5 pg (27.0-34.0); Mean Corpuscular Volume 90.2 fL (80.0-100.0); Mean Platelet Volume 7.8 fL (7.0-11.0); Mono # (Auto) 0.4 th/mm3 (0.0-0.9); Mono % (Auto) 4.8 % (0.0-8.0); Neut # (Auto) 6.9 th/mm3 (1.8-7.7); Neut % (Auto) 76.6 % (16.0-70.0); Platelet Count 250 th/mm3 (150-450); Red Blood Count 4.26 mil/mm3 (4.00-5.30); Red Cell Distribution Width 14.5 % (11.6-17.2)
[2018-07-18 07:01] LABS: Potassium 3.4 meq/L (3.5-5.1)
[2018-07-18 07:17] LABS: Albumin 2.9 g/dL (3.4-5.0); Calcium 6.7 mg/dL (8.5-10.1)
[2018-07-18] MEDS: Insulin NovoLOG Aspart Correctional Sugar Inj SQ SCH ×4 (08:12→22:55)
[2018-07-18] MEDS ORDERED: Escitalopram 10 MG Tablet PO SCH (09:00)
[2018-07-18] MEDS ORDERED: FLUTICASONE INHALATION SCH (09:00)
[2018-07-18] MEDS: Isosorbide Mononitrate 30 MG ER 24HR Tablet (Imdur) PO SCH (10:05)
[2018-07-18] MEDS: Triamterene/HCTZ 37.5 MG/25 MG Tablet PO SCH (10:06)
[2018-07-18] MEDS: Lisinopril 5 MG Tablet PO SCH (10:07)
[2018-07-18] MEDS: guaiFENesin 600 MG ER Tablet PO SCH ×2 (10:07→22:54)
[2018-07-18] MEDS: Budesonide-Formoterol 160/4.5 MCG 6 GM Inhaler INH SCH ×2 (10:08→22:54)
[2018-07-18] MEDS: Azithromycin 250 MG Tablet PO SCH (10:08)
--- NOTE | 2018-07-18 12:42 | P.PN ---
Subjective Interval history: Follow-up COPD exacerbation/respiratory distress July 18, 2018-patient seen and examined, seen with shortness of breath and wheezing on expiration. Denies any chest pain. Physical Exam Vital signs: Vital Signs 07/17/18 12:49 07/17/18 13:00 07/17/18 13:02 Temperature Pulse Rate 106 H Respiratory Rate 18 Blood Pressure Pulse Oximetry 89 L 97 07/17/18 13:12 07/17/18 14:56 07/17/18 15:05 Temperature Pulse Rate 106 H 107 H 115 H Respiratory Rate 20 18 18 Blood Pressure Pulse Oximetry 07/17/18 15:14 07/17/18 15:31 07/17/18 16:00 Temperature 98.2 F Pulse Rate 124 H 124 H 130 H Respiratory Rate 19 22 Blood Pressure 139/71 118/69 Pulse Oximetry 93 L 94 L 07/17/18 20:00 07/17/18 20:06 07/18/18 00:00 Temperature 98.5 F 98.6 F Pulse Rate 110 H 111 H 96 H Respiratory Rate 20 18 20 Blood Pressure 131/58 L 130/63 Pulse Oximetry 93 L 94 L 94 L 07/18/18 07:32 07/18/18 08:00 07/18/18 12:00 Temperature 96.6 F L 96.7 F L Pulse Rate 76 85 87 Respiratory Rate 18 18 18 Blood Pressure 119/66 107/58 L Pulse Oximetry 92 L 93 L 92 L Intake & Output 07/17/18 07/18/18 07/18/18 18:59 06:59 18:59 Intake Total 480 / 480 Balance 480 / 480 Weight 98.5 kg 99.2 kg Intake: Oral 480 / 480 Other: # Voids 2 3 # Bowel Movements 0 Weight On Admission 98.5 kg Narrative: GENERAL: NAD SKIN: Warm and dry. HEAD: Atraumatic. Normocephalic. EYES: Pupils equal and round. No scleral icterus. No injection or drainage. ENT: No nasal bleeding or discharge. Mucous membranes pink and moist. NECK: Trachea midline. No JVD. CARDIOVASCULAR: Regular rate and rhythm. RESPIRATORY: No accessory muscle use. Clear to auscultation. Breath sounds decrease bilaterally. +exp bilateral wheezing GASTROINTESTINAL: Abdomen soft, non-tender, nondistended. Hepatic and splenic margins not palpable. MUSCULOSKELETAL: Extremities without clubbing, cyanosis, or edema. No obvious deformities. NEUROLOGICAL: Awake and alert. No obvious cranial nerve deficits. Motor grossly within normal limits. Five out of 5 muscle strength in the arms and legs. Normal speech. PSYCHIATRIC: Appropriate mood and affect; insight and judgment normal. Results - Labs CBC & Chem 7: 07/18/18 06:15 07/18/18 06:15 Laboratory Results - last 24 hr 07/17/18 07/17/18 07/17/18 12:00 14:20 15:02 CBC w Diff WBC RBC Hgb Hct MCV MCH MCHC RDW Plt Count MPV Neut % (Auto) Lymph % (Auto) Edgar % (Auto) Eos % (Auto) Baso % (Auto) Neut # (Auto) Lymph # (Auto) Edgar # (Auto) Eos # (Auto) Baso # (Auto) WBC Differential Differential Comment Puncture Site Right radial Patient Temperature 98.6 O2 Saturation 94 ABG pH 7.43 H ABG pCO2 38 ABG pO2 76 ABG HCO3 25 ABG O2 Content 18.4 ABG Base Excess 0.6 ABG Methemoglobin 1.2 Santi Test Present Hemoglobin 14.0 Carboxyhemoglobin 1.0 O2 Delivery Device Nasal cannula Liter Flow 3.00 Critical Value No Sodium 142 Potassium 3.0 L Chloride 102 Carbon Dioxide 27.7 Anion Gap 12 BUN 11 Creatinine 1.40 H Estimated GFR 38 L POC Glucose Random Glucose 150 H Lactic Acid 4.8 H* Calcium 6.7 L* Prot Corrected Calcium 7.1 L* Total Bilirubin AST ALT Alkaline Phosphatase Troponin I Less than 0.02 L Total Protein 6.4 Albumin 07/17/18 07/17/18 07/18/18 16:14 22:28 06:15 CBC w Diff Auto diff final WBC 9.0 D RBC 4.26 Hgb 13.4 Hct 38.4 MCV 90.2 MCH 31.5 MCHC 35.0 RDW 14.5 Plt Count 250 MPV 7.8 Neut % (Auto) 76.6 H Lymph % (Auto) 18.4 Edgar % (Auto) 4.8 Eos % (Auto) 0.0 Baso % (Auto) 0.2 Neut # (Auto) 6.9 Lymph # (Auto) 1.7 Edgar # (Auto) 0.4 Eos # (Auto) 0.0 Baso # (Auto) 0.0 WBC Differential . Differential Comment . Puncture Site Patient Temperature O2 Saturation ABG pH ABG pCO2 ABG pO2 ABG HCO3 ABG O2 Content ABG Base Excess ABG Methemoglobin Santi Test Hemoglobin Carboxyhemoglobin O2 Delivery Device Liter Flow Critical Value Sodium Potassium Chloride Carbon Dioxide Anion Gap BUN Creatinine Estimated GFR POC Glucose 245 H 351 H Random Glucose Lactic Acid Calcium Prot Corrected Calcium Total Bilirubin AST ALT Alkaline Phosphatase Troponin I Total Protein Albumin 07/18/18 07/18/18 07/18/18 06:15 07:38 09:03 CBC w Diff WBC RBC Hgb Hct MCV MCH MCHC RDW Plt Count MPV Neut % (Auto) Lymph % (Auto) Edgar % (Auto) Eos % (Auto) Baso % (Auto) Neut # (Auto) Lymph # (Auto) Edgar # (Auto) Eos # (Auto) Baso # (Auto) WBC Differential Differential Comment Puncture Site Patient Temperature O2 Saturation ABG pH ABG pCO2 ABG pO2 ABG HCO3 ABG O2 Content ABG Base Excess ABG Methemoglobin Santi Test Hemoglobin Carboxyhemoglobin O2 Delivery Device Liter Flow Critical Value Sodium 138 Potassium 3.4 L Chloride 98 Carbon Dioxide 26.0 Anion Gap 14 BUN 14 Creatinine 1.70 H Estimated GFR 30 L POC Glucose 212 H Random Glucose 229 H Lactic Acid 3.9 H Calcium 6.7 L* Prot Corrected Calcium 6.8 L* Total Bilirubin 0.5 AST 34 ALT 32 Alkaline Phosphatase 79 Troponin I Total Protein 7.0 D Albumin 2.9 L 07/18/18 07/18/18 11:30 11:41 CBC w Diff WBC RBC Hgb Hct MCV MCH MCHC RDW Plt Count MPV Neut % (Auto) Lymph % (Auto) Edgar % (Auto) Eos % (Auto) Baso % (Auto) Neut # (Auto) Lymph # (Auto) Edgar # (Auto) Eos # (Auto) Baso # (Auto) WBC Differential Differential Comment Puncture Site Patient Temperature O2 Saturation ABG pH ABG pCO2 ABG pO2 ABG HCO3 ABG O2 Content ABG Base Excess ABG Methemoglobin Santi Test Hemoglobin Carboxyhemoglobin O2 Delivery Device Liter Flow Critical Value Sodium Potassium Chloride Carbon Dioxide Anion Gap BUN Creatinine Estimated GFR POC Glucose 245 H Random Glucose Lactic Acid 4.5 H* Calcium Prot Corrected Calcium Total Bilirubin AST ALT Alkaline Phosphatase Troponin I Total Protein Albumin Microbiology 07/17/18 12:05 Blood - Peripheral Aerobic Blood Culture - Preliminary No growth in 1 day 07/17/18 12:05 Blood - Peripheral Anaerobic Blood Culture - Preliminary No growth in 1 day 07/17/18 12:00 Blood - Peripheral Aerobic Blood Culture - Preliminary No growth in 1 day 07/17/18 12:00 Blood - Peripheral Anaerobic Blood Culture - Preliminary No growth in 1 day 07/17/18 12:07 Nasal Wash Influenza Types A,B Antigen - Final Negative for FLU A and B antigen Infection due to influenza A or B cannot be ruled out since the antigen present in the sample may be below the detection limit of the test. - Imaging Impressions Chest X-Ray 07/17/18 11:53 CONCLUSION: 1. Suspect artifactually increased opacity in the left lung base. If patient has physical exam findings corresponding to the left lower lung riggs, consider formal PA and lateral views of the chest. Assessment and Plan - Assessment (1) Asthma exacerbation Code(s): J45.901 - Unspecified asthma with (acute) exacerbation Status: Acute (2) COPD exacerbation Code(s): J44.1 - Chronic obstructive pulmonary disease with (acute) exacerbation Status: Acute (3) Acute respiratory distress Code(s): R06.03 - Acute respiratory distress Status: Acute (4) Hypoxia Code(s): R09.02 - Hypoxemia Status: Acute - Plan 63-year-old female with Respiratory distress Asthma/COPD exacerbation Hypoxemia X-ray noted and reviewed by me with finding of Suspect artifactually increased opacity in the left lung base Status post Solu-Medrol 125 mg IV x1 in ED, continue Solu-Medrol 40 mg IV every 8 hour Currently on Spiriva,Symbicort, DuoNeb scheduled and as needed, Mucinex, azithromycin 250 mg daily Maintain oxygen saturation above 92% Appreciate input from pulmonary medicine Perform walk test prior to discharge Lactic acidosis Patient with recent diagnosis of CAP Monitor lactic acid level Hypokalemia Will give potassium supplement 40 mEq x1 now and monitor electrolyte Recent diagnosis of community-acquired pneumonia Continue treatment with antibiotic History of diabetes type 2 Continue metformin, and medium sliding scale insulin Other chronic medical conditions Continue outpatient medications DVT prophylaxis: Bilateral SCDs
[2018-07-18] MEDS ORDERED: Calcium Gluconate Inj 1 GM in Sodium Chlor 0.9% Inj 100 ML IV.SIG ONE (14:00)
[2018-07-18] MEDS: Diphenoxylate/Atropine 2.5/0.025 MG Tablet PO PRN (15:56)
[2018-07-18] MEDS: Sod Chloride 0.9% Inj 1,000 ML IV.CONT SCH (15:56)
--- NOTE | 2018-07-18 16:25 | P.PNPL ---
Subjective Interval history: 63 YO Obese WF with COPD Exac,DM,HTN Breathing better But gets sob on any activity Cough, small amount of sp no fever Physical Exam Vital signs: Vital Signs 07/17/18 20:00 07/17/18 20:06 07/18/18 00:00 Temperature 98.5 F 98.6 F Pulse Rate 110 H 111 H 96 H Respiratory Rate 20 18 20 Blood Pressure 131/58 L 130/63 Pulse Oximetry 93 L 94 L 94 L 07/18/18 07:32 07/18/18 08:00 07/18/18 12:00 Temperature 96.6 F L 96.7 F L Pulse Rate 76 85 87 Respiratory Rate 18 18 18 Blood Pressure 119/66 107/58 L Pulse Oximetry 92 L 93 L 92 L 07/18/18 13:58 07/18/18 15:52 Temperature 97.8 F Pulse Rate 87 101 H Respiratory Rate 18 18 Blood Pressure 119/80 Pulse Oximetry 94 L Intake & Output 07/17/18 07/18/18 07/18/18 18:59 06:59 18:59 Intake Total 480 / 480 Balance 480 / 480 Weight 98.5 kg 99.2 kg Intake: Oral 480 / 480 Other: # Voids 2 3 # Bowel Movements 0 Weight On Admission 98.5 kg GENERAL: WBWn WF, mild sob SKIN: Warm and dry. HEAD: Normocephalic. EYES: No scleral icterus. No injection or drainage. NECK: Supple, trachea midline. No JVD or lymphadenopathy. CARDIOVASCULAR: Regular rate and rhythm without murmurs, gallops, or rubs. RESPIRATORY: Breath sounds equal bilaterally. No accessory muscle use. End exp rhonchi GASTROINTESTINAL: Abdomen soft, non-tender, nondistended. MUSCULOSKELETAL: No cyanosis, or edema. BACK: Nontender without obvious deformity. No CVA tenderness. Assessment and Plan - Plan IMPRESSION: 1. Chronic obstructive pulmonary disease with exacerbation. 2. Bronchitis. 3. Type 2 diabetes mellitus. 4. Hypertension. PLAN: IV Solumedrol Aerosol nebs Mucinex bid Cont Abx Zithromax Supplement 02 DVT prophylaxis with Heparin 5000IU q 8 hrs Suoolement 02 to keep sat >90%
[2018-07-18] MEDS: Tiotropium Bromide 18 MCG/ACT Inhaler INH SCH (17:39)
[2018-07-18] MEDS: Montelukast 10 MG Tablet PO SCH (17:44)
[2018-07-18] MEDS: Escitalopram 10 MG Tablet PO SCH (22:53)
[2018-07-19] MEDS: MethylPREDNISolone Sod Succinate Inj 40 MG/ML Vial IV.PUSH SCH ×4 (05:34→21:41)
[2018-07-19] MEDS: Heparin - SQ 10,000 UNITS/ML Vial SQ SCH ×3 (05:37→21:41)
[2018-07-19] MEDS: Levothyroxine 88 MCG Tablet PO SCH (05:37)
[2018-07-19 07:36] LABS: Albumin 2.6 g/dL (3.4-5.0); Calcium 6.6 mg/dL (8.5-10.1); Carbon Dioxide 23.3 meq/L (21.0-32.0); Potassium 4.9 meq/L (3.5-5.1); Total Protein 6.2 g/dL (6.4-8.2)
[2018-07-19] MEDS: Budesonide-Formoterol 160/4.5 MCG 6 GM Inhaler INH SCH ×2 (09:07→21:39)
[2018-07-19] MEDS: Isosorbide Mononitrate 30 MG ER 24HR Tablet (Imdur) PO SCH (09:07)
[2018-07-19] MEDS: Lisinopril 5 MG Tablet PO SCH (09:07)
[2018-07-19] MEDS: Escitalopram 10 MG Tablet PO SCH ×2 (09:07→21:39)
[2018-07-19] MEDS: Azithromycin 250 MG Tablet PO SCH (09:07)
[2018-07-19] MEDS: guaiFENesin 600 MG ER Tablet PO SCH ×2 (09:08→21:39)
[2018-07-19] MEDS: Triamterene/HCTZ 37.5 MG/25 MG Tablet PO SCH (09:08)
[2018-07-19] MEDS: Insulin NovoLOG Aspart Correctional Sugar Inj SQ SCH ×4 (09:08→21:48)
[2018-07-19] MEDS: Tiotropium Bromide 18 MCG/ACT Inhaler INH SCH (09:09)
[2018-07-19] MEDS: Sod Chloride 0.9% Inj 1,000 ML IV.CONT SCH ×2 (09:09→21:49)
[2018-07-19] MEDS: Diphenoxylate/Atropine 2.5/0.025 MG Tablet PO PRN (12:18)
--- NOTE | 2018-07-19 12:51 | P.PN ---
Subjective Interval history: Follow-up COPD exacerbation/respiratory distress July 18, 2018-patient seen and examined, seen with shortness of breath and wheezing on expiration. Denies any chest pain. July 19, 2018-patient seen and examined, reports some improvement of shortness of breath. Lactic acid trending up. Physical Exam Vital signs: Vital Signs 07/18/18 13:58 07/18/18 15:52 07/18/18 20:00 Temperature 97.8 F 96.3 F L Pulse Rate 87 101 H 76 Respiratory Rate 18 Blood Pressure 119/80 99/52 L Pulse Oximetry 94 L 93 L 07/18/18 20:05 07/18/18 23:54 07/19/18 07:51 Temperature 96.3 F L Pulse Rate 91 H 87 79 Respiratory Rate 18 Blood Pressure 101/53 L Pulse Oximetry 97 94 L 99 07/19/18 08:00 07/19/18 12:00 Temperature 95.7 F L 96.2 F L Pulse Rate 96 H 87 Respiratory Rate 18 12 Blood Pressure 121/63 104/60 Pulse Oximetry 95 96 Intake & Output 07/18/18 07/19/18 07/19/18 18:59 06:59 18:59 Intake Total 1050 / 1050 Balance 1050 / 1050 Weight 101.6 kg Intake: IV 110 / 110 Calcium Gluconate Inj 1 GM In 110 / 110 NS Inj 100 ML @ 110 mls/hr IV. SIG ONCE ONE Rx#:[id number] Oral 940 / 940 Other: # Voids 3 3 # Bowel Movements 2 Narrative: GENERAL: NAD SKIN: Warm and dry. HEAD: Atraumatic. Normocephalic. EYES: Pupils equal and round. No scleral icterus. No injection or drainage. ENT: No nasal bleeding or discharge. Mucous membranes pink and moist. NECK: Trachea midline. No JVD. CARDIOVASCULAR: Regular rate and rhythm. RESPIRATORY: No accessory muscle use. Clear to auscultation. Breath sounds equal bilaterally. GASTROINTESTINAL: Abdomen soft, non-tender, nondistended. Hepatic and splenic margins not palpable. MUSCULOSKELETAL: Extremities without clubbing, cyanosis, or edema. No obvious deformities. NEUROLOGICAL: Awake and alert. No obvious cranial nerve deficits. Motor grossly within normal limits. Five out of 5 muscle strength in the arms and legs. Normal speech. PSYCHIATRIC: Appropriate mood and affect; insight and judgment normal. Results - Labs CBC & Chem 7: 07/18/18 06:15 07/19/18 06:46 Laboratory Results - last 24 hr 07/18/18 07/18/18 07/19/18 16:59 22:52 06:46 Sodium 141 Potassium 4.9 D Chloride 105 Carbon Dioxide 23.3 Anion Gap 13 BUN 30 H Creatinine 2.30 H Estimated GFR 21 L POC Glucose 255 H 271 H Random Glucose 197 H Lactic Acid Calcium 6.6 L* Prot Corrected Calcium 7.0 L* Total Bilirubin 0.4 AST 34 ALT 31 Alkaline Phosphatase 81 Total Protein 6.2 L D Albumin 2.6 L 07/19/18 07/19/18 06:46 11:09 Sodium Potassium Chloride Carbon Dioxide Anion Gap BUN Creatinine Estimated GFR POC Glucose 207 H Random Glucose Lactic Acid 7.8 H* Calcium Prot Corrected Calcium Total Bilirubin AST ALT Alkaline Phosphatase Total Protein Albumin Microbiology 07/17/18 12:05 Blood - Peripheral Aerobic Blood Culture - Preliminary No growth in 2 days 07/17/18 12:05 Blood - Peripheral Anaerobic Blood Culture - Preliminary No growth in 2 days 07/17/18 12:00 Blood - Peripheral Aerobic Blood Culture - Preliminary No growth in 2 days 07/17/18 12:00 Blood - Peripheral Anaerobic Blood Culture - Preliminary No growth in 2 days Assessment and Plan - Assessment (1) Asthma exacerbation Code(s): J45.901 - Unspecified asthma with (acute) exacerbation Status: Acute (2) COPD exacerbation Code(s): J44.1 - Chronic obstructive pulmonary disease with (acute) exacerbation Status: Acute (3) Acute respiratory distress Code(s): R06.03 - Acute respiratory distress Status: Acute (4) Hypoxia Code(s): R09.02 - Hypoxemia Status: Acute - Plan 63-year-old female with Respiratory distress Asthma/COPD exacerbation Hypoxemia X-ray noted and reviewed by me with finding of Suspect artifactually increased opacity in the left lung base Status post Solu-Medrol 125 mg IV x1 in ED, continue Solu-Medrol 40 mg IV every 8 hour Currently on Spiriva,Symbicort, DuoNeb scheduled and as needed, Mucinex, azithromycin 250 mg daily Maintain oxygen saturation above 92% Appreciate input from pulmonary medicine Perform walk test prior to discharge Lactic acidosis Secondary to Metformin, will discontinue 8 Hypokalemia Resolved with replacement, continue to monitor electrolyte Recent diagnosis of community-acquired pneumonia Continue treatment with antibiotic History of diabetes type 2 Continue medium sliding scale insulin Will hold metformin secondary to lactic acidosis Other chronic medical conditions Continue outpatient medications DVT prophylaxis: Bilateral SCDs
[2018-07-19] MEDS ORDERED: Calcium Gluconate Inj 2 GM in Sodium Chlor 0.9% Inj 100 ML IV.SIG ONE (14:00)
[2018-07-19] MEDS: Montelukast 10 MG Tablet PO SCH (17:01)
--- NOTE | 2018-07-19 22:00 | P.PN ---
Subjective Interval history: alert less sob Physical Exam Vital signs: Vital Signs 07/18/18 23:54 07/19/18 07:51 07/19/18 08:00 Temperature 96.3 F L 95.7 F L Pulse Rate 87 79 96 H Respiratory Rate 18 18 18 Blood Pressure 101/53 L 121/63 Pulse Oximetry 94 L 99 95 07/19/18 12:00 07/19/18 13:47 07/19/18 16:00 Temperature 96.2 F L 95.5 F L Pulse Rate 87 89 Respiratory Rate 12 12 Blood Pressure 104/60 111/69 Pulse Oximetry 96 96 96 07/19/18 17:32 07/19/18 20:00 07/19/18 20:04 Temperature 96.8 F L 96.0 F L Pulse Rate 94 H 82 Respiratory Rate 16 18 Blood Pressure 117/55 L Pulse Oximetry 93 L 07/19/18 20:05 Temperature Pulse Rate Respiratory Rate Blood Pressure Pulse Oximetry 95 Intake & Output 07/19/18 07/19/18 07/20/18 06:59 18:59 06:59 Intake Total 1600 / 1600 Balance 1600 / 1600 Weight 101.6 kg Intake: IV 1120 / 1120 NS Inj 1,000 ML @ 70 mls/hr IV. 1000 / 1000 CONT .[id number] [facility] Rx#: [id number] Calcium Gluconate Inj 2 GM In 120 / 120 NS Inj 100 ML @ 120 mls/hr IV. SIG ONCE ONE Rx#:[id number] Oral 480 / 480 Other: # Voids 3 4 # Bowel Movements 3 Narrative: GENERAL: NAD SKIN: Warm and dry. HEAD: Atraumatic. Normocephalic. EYES: Pupils equal and round. No scleral icterus. No injection or drainage. ENT: No nasal bleeding or discharge. Mucous membranes pink and moist. NECK: Trachea midline. No JVD. CARDIOVASCULAR: Regular rate and rhythm. RESPIRATORY: No accessory muscle use. Clear to auscultation. Breath sounds equal bilaterally. GASTROINTESTINAL: Abdomen soft, non-tender, nondistended. Hepatic and splenic margins not palpable. MUSCULOSKELETAL: Extremities without clubbing, cyanosis, or edema. No obvious deformities. NEUROLOGICAL: Awake and alert. No obvious cranial nerve deficits. Motor grossly within normal limits. Five out of 5 muscle strength in the arms and legs. Normal speech. PSYCHIATRIC: Appropriate mood and affect; insight and judgment normal. Results - Labs CBC & Chem 7: 07/18/18 06:15 07/19/18 06:46 Laboratory Results - last 24 hr 07/18/18 07/19/18 07/19/18 22:52 06:46 06:46 Sodium 141 Potassium 4.9 D Chloride 105 Carbon Dioxide 23.3 Anion Gap 13 BUN 30 H Creatinine 2.30 H Estimated GFR 21 L POC Glucose 271 H Random Glucose 197 H Lactic Acid 7.8 H* Calcium 6.6 L* Prot Corrected Calcium 7.0 L* Total Bilirubin 0.4 AST 34 ALT 31 Alkaline Phosphatase 81 Total Protein 6.2 L D Albumin 2.6 L 07/19/18 07/19/18 07/19/18 11:09 16:52 21:48 Sodium Potassium Chloride Carbon Dioxide Anion Gap BUN Creatinine Estimated GFR POC Glucose 207 H 225 H 242 H Random Glucose Lactic Acid Calcium Prot Corrected Calcium Total Bilirubin AST ALT Alkaline Phosphatase Total Protein Albumin Microbiology 07/17/18 12:05 Blood - Peripheral Aerobic Blood Culture - Preliminary No growth in 2 days 07/17/18 12:05 Blood - Peripheral Anaerobic Blood Culture - Preliminary No growth in 2 days 07/17/18 12:00 Blood - Peripheral Aerobic Blood Culture - Preliminary No growth in 2 days 07/17/18 12:00 Blood - Peripheral Anaerobic Blood Culture - Preliminary No growth in 2 days Assessment and Plan - Plan COPD EXACERBATION, IMPROVING MARYSOL SUSPECT DECLINES EVALUATION DM HTN PLAN O2 NEEDED BRONCHODILATOR THERAPY INCREASE ACTIVITY
[2018-07-20] MEDS: Heparin - SQ 10,000 UNITS/ML Vial SQ SCH ×3 (06:22→22:04)
[2018-07-20] MEDS: Levothyroxine 88 MCG Tablet PO SCH (06:22)
[2018-07-20] MEDS: MethylPREDNISolone Sod Succinate Inj 40 MG/ML Vial IV.PUSH SCH (06:22)
[2018-07-20 07:14] LABS: Potassium 4.5 meq/L (3.5-5.1)
[2018-07-20 07:27] LABS: Albumin 2.5 g/dL (3.4-5.0); Calcium 6.7 mg/dL (8.5-10.1); Carbon Dioxide 23.8 meq/L (21.0-32.0); Total Protein 6.2 g/dL (6.4-8.2)
[2018-07-20] MEDS: Insulin NovoLOG Aspart Correctional Sugar Inj SQ SCH ×4 (08:11→22:03)
[2018-07-20] MEDS: Sod Chloride 0.9% Inj 1,000 ML IV.CONT SCH ×2 (08:13→10:00)
[2018-07-20] MEDS: Escitalopram 10 MG Tablet PO SCH ×2 (08:18→22:00)
[2018-07-20] MEDS: Isosorbide Mononitrate 30 MG ER 24HR Tablet (Imdur) PO SCH (08:18)
[2018-07-20] MEDS: Triamterene/HCTZ 37.5 MG/25 MG Tablet PO SCH (08:18)
[2018-07-20] MEDS: guaiFENesin 600 MG ER Tablet PO SCH ×2 (08:19→22:00)
[2018-07-20] MEDS: Lisinopril 5 MG Tablet PO SCH (08:19)
[2018-07-20] MEDS: Azithromycin 250 MG Tablet PO SCH (08:20)
[2018-07-20] MEDS: Budesonide-Formoterol 160/4.5 MCG 6 GM Inhaler INH SCH ×2 (08:20→22:01)
[2018-07-20] MEDS: Tiotropium Bromide 18 MCG/ACT Inhaler INH SCH (08:20)
[2018-07-20] MEDS: predniSONE 10 MG Tablet PO SCH ×2 (09:18→22:01)
--- NOTE | 2018-07-20 10:48 | P.PN ---
Subjective Interval history: Follow-up COPD exacerbation/respiratory distress July 18, 2018-patient seen and examined, seen with shortness of breath and wheezing on expiration. Denies any chest pain. July 19, 2018-patient seen and examined, reports some improvement of shortness of breath. Lactic acid trending up. July 20, 2018-patient seen and examined, doing well and no significant some shortness of breath. lactic acid trending down Physical Exam Vital signs: Vital Signs 07/19/18 12:00 07/19/18 13:47 07/19/18 16:00 Temperature 96.2 F L 95.5 F L Pulse Rate 87 89 Respiratory Rate 12 12 Blood Pressure 104/60 111/69 Pulse Oximetry 96 96 96 07/19/18 17:32 07/19/18 20:00 07/19/18 20:04 Temperature 96.8 F L 96.0 F L Pulse Rate 94 H 82 Respiratory Rate 16 18 Blood Pressure 117/55 L Pulse Oximetry 93 L 07/19/18 20:05 07/20/18 00:00 07/20/18 07:30 Temperature 95.8 F L Pulse Rate 91 H 71 Respiratory Rate 16 16 Blood Pressure 105/56 L Pulse Oximetry 95 97 96 07/20/18 08:00 Temperature 96.4 F L Pulse Rate 93 H Respiratory Rate 20 Blood Pressure 117/59 L Pulse Oximetry 96 Intake & Output 07/19/18 07/20/18 07/20/18 18:59 06:59 18:59 Intake Total 1600 / 1600 1000 / 1000 Balance 1600 / 1600 1000 / 1000 Weight 101.8 kg Intake: IV 1120 / 1120 1000 / 1000 NS Inj 1,000 ML @ 70 mls/hr IV. 1000 / 1000 1000 / 1000 CONT .[id number] [facility] Rx#: [id number] Calcium Gluconate Inj 2 GM In 120 / 120 NS Inj 100 ML @ 120 mls/hr IV. SIG ONCE ONE Rx#:[id number] Oral 480 / 480 Other: # Voids 4 3 Date of Last Bowel Movement 07/20/18 # Bowel Movements 3 Narrative: GENERAL: NAD SKIN: Warm and dry. HEAD: Atraumatic. Normocephalic. EYES: Pupils equal and round. No scleral icterus. No injection or drainage. ENT: No nasal bleeding or discharge. Mucous membranes pink and moist. NECK: Trachea midline. No JVD. CARDIOVASCULAR: Regular rate and rhythm. RESPIRATORY: No accessory muscle use. Clear to auscultation. Breath sounds equal bilaterally. GASTROINTESTINAL: Abdomen soft, non-tender, nondistended. Hepatic and splenic margins not palpable. MUSCULOSKELETAL: Extremities without clubbing, cyanosis, or edema. No obvious deformities. NEUROLOGICAL: Awake and alert. No obvious cranial nerve deficits. Motor grossly within normal limits. Five out of 5 muscle strength in the arms and legs. PSYCHIATRIC: Appropriate mood and affect; insight and judgment normal. Results - Labs CBC & Chem 7: 07/18/18 06:15 07/20/18 06:33 Laboratory Results - last 24 hr 07/19/18 07/19/18 07/19/18 11:09 16:52 21:48 Sodium Potassium Chloride Carbon Dioxide Anion Gap BUN Creatinine Estimated GFR POC Glucose 207 H 225 H 242 H Random Glucose Lactic Acid Calcium Prot Corrected Calcium Total Bilirubin AST ALT Alkaline Phosphatase Total Protein Albumin 07/20/18 07/20/18 07/20/18 06:33 06:33 07:45 Sodium 142 Potassium 4.5 Chloride 108 H Carbon Dioxide 23.8 Anion Gap 10 BUN 34 H Creatinine 1.90 H Estimated GFR 27 L POC Glucose 273 H Random Glucose 273 H Lactic Acid 4.9 H* Calcium 6.7 L* Prot Corrected Calcium 7.1 L* Total Bilirubin 0.4 AST 34 ALT 33 Alkaline Phosphatase 89 Total Protein 6.2 L Albumin 2.5 L Microbiology 07/17/18 12:05 Blood - Peripheral Aerobic Blood Culture - Preliminary No growth in 2 days 07/17/18 12:05 Blood - Peripheral Anaerobic Blood Culture - Preliminary No growth in 2 days 07/17/18 12:00 Blood - Peripheral Aerobic Blood Culture - Preliminary No growth in 2 days 07/17/18 12:00 Blood - Peripheral Anaerobic Blood Culture - Preliminary No growth in 2 days Assessment and Plan - Assessment (1) Asthma exacerbation Code(s): J45.901 - Unspecified asthma with (acute) exacerbation Status: Acute (2) COPD exacerbation Code(s): J44.1 - Chronic obstructive pulmonary disease with (acute) exacerbation Status: Acute (3) Acute respiratory distress Code(s): R06.03 - Acute respiratory distress Status: Acute (4) Hypoxia Code(s): R09.02 - Hypoxemia Status: Acute - Plan 63-year-old female with Respiratory distress-Resolved Asthma/COPD exacerbation-Resolved Hypoxemia X-ray with finding of Suspect artifactually increased opacity in the left lung base Currently on Solu-Medrol 40 mg IV every 8 hour; however will switch to PO Prednisone Currently on Spiriva,Symbicort, DuoNeb scheduled and as needed, Mucinex, azithromycin 250 mg daily Maintain oxygen saturation above 92% Appreciate input from pulmonary medicine Lactic acidosis Lactic acid trending down Continue to hold Metformin Hypokalemia Resolved with replacement, continue to monitor electrolyte Recent diagnosis of community-acquired pneumonia Continue treatment with antibiotic History of diabetes type 2 Continue medium sliding scale insulin; Will discharge on oral anti-glycemic agent Continue to hold metformin secondary to lactic acidosis Other chronic medical conditions Continue outpatient medications DVT prophylaxis: Bilateral SCDs PT to treat and consult
--- NOTE | 2018-07-20 11:16 | P.DS ---
Date of admission: 07/17/18 14:10 Primary care physician: UNKNOWN Anticipated date of discharge: 07/21/18 Brief History from admission: 63-year-old female for past medical history of diabetes, inflammatory bowel disease, inflammatory arthritis and was recently started on p.o. antibiotic for suspected pneumonia since July 15, 2018 presented to the ED for evaluation of worsening respiratory failure with increasing shortness of breath associated with wheezing and non-productive. Patient states, she was prescribed Levaquin on day 9 for suspected pneumonia. She initially got sick since Thursday, July 12, 2018. She is suspected flulike symptoms however was diagnosed with possible pneumonia by her PCP who prescribed Levaquin. Patient presented to the ED today because of increasing shortness of breath, generalized fatigue and lack of energy. She denies any febrile episode. While in the ED, despite albuterol treatment, patient continued to have significant shortness of breath. She was also found to be hypoxemic DS: Diagnosis - Discharge Diagnosis (1) Asthma exacerbation Status: Acute (2) COPD exacerbation Status: Acute (3) Acute respiratory distress Status: Acute (4) Hypoxia Status: Acute DS: Medications - Discharge Medications Prescriptions: albuterol sulfate [Ventolin HFA] 2 puff INHALATION Q4-6H PRN #1 g PRN Reason: Shortness Of Breath budesonide-formoterol [Symbicort] 2 puff INH BID #1 g glipizide 10 mg PO BID #60 tab guaifenesin [Mucinex] 600 mg PO BID #10 tab ipratropium bromide [Atrovent HFA] 1 puff INHALATION QID #1 g prednisone 10 mg PO BID #14 tab tiotropium bromide [Spiriva with HandiHaler] 18 mcg INH DAILY #30 inh DS: Summary Hospital Course: While in hospital, patient was treated for: Respiratory distress-Resolved Asthma/COPD exacerbation-Resolved Hypoxemia X-ray with finding of Suspect artifactually increased opacity in the left lung base Treated with Solu-Medrol 40 mg IV every 8 hour; however will switch to PO Prednisone Treated with Spiriva,Symbicort, DuoNeb scheduled and as needed, Mucinex, azithromycin 250 mg daily Maintain oxygen saturation above 92% Appreciate input from pulmonary medicine Lactic acidosis Lactic acid trending down to 3.8 on discharge date Metformin was held Hypokalemia Resolved with replacement, continue to monitor electrolyte Recent diagnosis of community-acquired pneumonia She was treated with azithromycin History of diabetes type 2 Treated with medium sliding scale insulin; Will discharge on glipizide 10 mg twice daily Metformin was held secondary to lactic acidosis Other chronic medical conditions Outpatient medications were resumed accordingly DVT prophylaxis: Bilateral SCDs PT to treat and consult - Time Spent with Patient Total time spent providing and/or coordinating discharge services: Less than 30 minutes - Quality: VTE Deep Vein Thrombosis/Pulmonary Embolism Present on Admission: No Exam Vital signs: Vital Signs 07/19/18 12:00 07/19/18 13:47 07/19/18 16:00 Temperature 96.2 F L 95.5 F L Pulse Rate 87 89 Respiratory Rate 12 12 Blood Pressure 104/60 111/69 Pulse Oximetry 96 96 96 07/19/18 17:32 07/19/18 20:00 07/19/18 20:04 Temperature 96.8 F L 96.0 F L Pulse Rate 94 H 82 Respiratory Rate 16 18 Blood Pressure 117/55 L Pulse Oximetry 93 L 07/19/18 20:05 07/20/18 00:00 07/20/18 07:30 Temperature 95.8 F L Pulse Rate 91 H 71 Respiratory Rate 16 16 Blood Pressure 105/56 L Pulse Oximetry 95 97 96 07/20/18 08:00 Temperature 96.4 F L Pulse Rate 93 H Respiratory Rate 20 Blood Pressure 117/59 L Pulse Oximetry 96 Intake & Output 07/19/18 07/20/18 07/20/18 18:59 06:59 18:59 Intake Total 1600 / 1600 1000 / 1000 Balance 1600 / 1600 1000 / 1000 Weight 101.8 kg Intake: IV 1120 / 1120 1000 / 1000 NS Inj 1,000 ML @ 70 mls/hr IV. 1000 / 1000 1000 / 1000 CONT .[id number] [facility] Rx#: [id number] Calcium Gluconate Inj 2 GM In 120 / 120 NS Inj 100 ML @ 120 mls/hr IV. SIG ONCE ONE Rx#:[id number] Oral 480 / 480 Other: # Voids 4 3 Date of Last Bowel Movement 07/20/18 # Bowel Movements 3 Narrative: GENERAL: NAD SKIN: Warm and dry. HEAD: Atraumatic. Normocephalic. EYES: Pupils equal and round. No scleral icterus. No injection or drainage. ENT: No nasal bleeding or discharge. Mucous membranes pink and moist. NECK: Trachea midline. No JVD. CARDIOVASCULAR: Regular rate and rhythm. RESPIRATORY: No accessory muscle use. Clear to auscultation. Breath sounds equal bilaterally. GASTROINTESTINAL: Abdomen soft, non-tender, nondistended. Hepatic and splenic margins not palpable. MUSCULOSKELETAL: Extremities without clubbing, cyanosis, or edema. No obvious deformities. NEUROLOGICAL: Awake and alert. No obvious cranial nerve deficits. Motor grossly within normal limits. Five out of 5 muscle strength in the arms and legs. PSYCHIATRIC: Appropriate mood and affect; insight and judgment normal. Results Procedures completed during hospitalization: none Labs on day of discharge: Labs from last 24 hours 07/20/18 07/20/18 07/20/18 07:45 06:33 06:33 Sodium 142 Potassium 4.5 Chloride 108 H Carbon Dioxide 23.8 Anion Gap 10 BUN 34 H Creatinine 1.90 H Estimated GFR 27 L POC Glucose 273 H Random Glucose 273 H Lactic Acid 4.9 H* Calcium 6.7 L* Prot Corrected Calcium 7.1 L* Total Bilirubin 0.4 AST 34 ALT 33 Alkaline Phosphatase 89 Total Protein 6.2 L Albumin 2.5 L 07/19/18 07/19/18 21:48 16:52 Sodium Potassium Chloride Carbon Dioxide Anion Gap BUN Creatinine Estimated GFR POC Glucose 242 H 225 H Random Glucose Lactic Acid Calcium Prot Corrected Calcium Total Bilirubin AST ALT Alkaline Phosphatase Total Protein Albumin Preliminary micro results at discharge 07/17/18 12:05 Aerobic Blood Culture - Preliminary Blood - Peripheral No growth in 3 days Anaerobic Blood Culture - Preliminary No growth in 3 days 07/17/18 12:00 Aerobic Blood Culture - Preliminary Blood - Peripheral No growth in 3 days Anaerobic Blood Culture - Preliminary No growth in 3 days - Impressions ITS Impressions Chest X-Ray 07/17/18 11:53 CONCLUSION: 1. Suspect artifactually increased opacity in the left lung base. If patient has physical exam findings corresponding to the left lower lung riggs, consider formal PA and lateral views of the chest. Discharge Plan - Discharge Disposition Patient Disposition: W/Home Health Service - Discharge Condition Condition: Good - Discharge Order Discharge Orders: Discharge Order (Routine); Ordered 07/21/18 Ordered By: Ronal Sheppard - Physicians Team Primary Care Provider: UNKNOWN, Attending Provider: Ronal Sheppard Other Providers: Hong Graf MD ; [employer], ; [employer]
--- NOTE | 2018-07-20 14:10 | P.DCO ---
- Physical Therapy Order: Evaluate and treat - Home Health Nursing Order: Signs/symptoms of disease process - Certification I have seen patient Mia Huggins on 07/20/18. My clinical findings support the need for the requested home health care services because: Patient has SOB I certify that my clinical findings support that this patient is homebound because: Hx COPD - exertion dyspnea/weakness
[2018-07-20] MEDS: Montelukast 10 MG Tablet PO SCH (17:32)
[2018-07-21] MEDS: Sod Chloride 0.9% Inj 1,000 ML IV.CONT SCH (02:29)
[2018-07-21] MEDS: Heparin - SQ 10,000 UNITS/ML Vial SQ SCH (05:06)
[2018-07-21] MEDS: Levothyroxine 88 MCG Tablet PO SCH (05:15)
[2018-07-21 07:38] VITALS: O2SAT 97
[2018-07-21] MEDS: Insulin NovoLOG Aspart Correctional Sugar Inj SQ SCH (08:00)
[2018-07-21] MEDS: Tiotropium Bromide 18 MCG/ACT Inhaler INH SCH (08:00)
[2018-07-21] MEDS: Triamterene/HCTZ 37.5 MG/25 MG Tablet PO SCH (08:01)
[2018-07-21] MEDS: Isosorbide Mononitrate 30 MG ER 24HR Tablet (Imdur) PO SCH (08:01)
[2018-07-21] MEDS: Escitalopram 10 MG Tablet PO SCH (08:01)
[2018-07-21] MEDS: Lisinopril 5 MG Tablet PO SCH (08:01)
[2018-07-21] MEDS: guaiFENesin 600 MG ER Tablet PO SCH (08:01)
[2018-07-21] MEDS: Azithromycin 250 MG Tablet PO SCH (08:02)
[2018-07-21] MEDS: Budesonide-Formoterol 160/4.5 MCG 6 GM Inhaler INH SCH (08:03)
[2018-07-21] MEDS: predniSONE 10 MG Tablet PO SCH (08:03)
--- NOTE | 2018-07-21 10:18 | P.PN ---
Subjective Interval history: Follow-up COPD exacerbation/respiratory distress July 18, 2018-patient seen and examined, seen with shortness of breath and wheezing on expiration. Denies any chest pain. July 19, 2018-patient seen and examined, reports some improvement of shortness of breath. Lactic acid trending up. July 20, 2018-patient seen and examined, doing well and no significant some shortness of breath. lactic acid trending down July 21, 2018-patient seen and examined, reports significant improvement of shortness of breath. Lactic acid trending down. Patient states she is now ready for discharge home. Physical Exam Vital signs: Vital Signs 07/20/18 12:00 07/20/18 16:00 07/20/18 20:00 Temperature 97.1 F L 96.6 F L 98.3 F Pulse Rate 89 91 H 90 Respiratory Rate 20 20 16 Blood Pressure 135/61 117/59 L 108/59 L Pulse Oximetry 95 96 94 L 07/20/18 20:15 07/21/18 00:00 07/21/18 07:37 Temperature 97.8 F Pulse Rate 88 91 H 66 Respiratory Rate 20 16 16 Blood Pressure 112/56 L Pulse Oximetry 98 95 97 07/21/18 08:00 Temperature 95.2 F L Pulse Rate 68 Respiratory Rate 16 Blood Pressure 119/60 Pulse Oximetry 97 Intake & Output 07/20/18 07/21/18 07/21/18 18:59 06:59 18:59 Intake Total 1560 / 1560 1300 / 1300 Balance 1560 / 1560 1300 / 1300 Weight 101.6 kg Intake: IV 1000 / 1000 1200 / 1200 NS Inj 1,000 ML @ 70 mls/hr IV. 1000 / 1000 1200 / 1200 CONT .[id number] [facility] Rx#: [id number] Oral 560 / 560 100 / 100 Other: # Voids 6 Date of Last Bowel Movement 07/20/18 07/20/18 07/20/18 # Bowel Movements 2 Narrative: GENERAL: NAD SKIN: Warm and dry. HEAD: Atraumatic. Normocephalic. EYES: Pupils equal and round. No scleral icterus. No injection or drainage. ENT: No nasal bleeding or discharge. Mucous membranes pink and moist. NECK: Trachea midline. No JVD. CARDIOVASCULAR: Regular rate and rhythm. RESPIRATORY: No accessory muscle use. Clear to auscultation. Breath sounds equal bilaterally. GASTROINTESTINAL: Abdomen soft, non-tender, nondistended. Hepatic and splenic margins not palpable. MUSCULOSKELETAL: Extremities without clubbing, cyanosis, or edema. No obvious deformities. NEUROLOGICAL: Awake and alert. No obvious cranial nerve deficits. Motor grossly within normal limits. Five out of 5 muscle strength in the arms and legs. PSYCHIATRIC: Appropriate mood and affect; insight and judgment normal. Results - Labs CBC & Chem 7: 07/18/18 06:15 07/20/18 06:33 Laboratory Results - last 24 hr 07/20/18 07/20/18 07/20/18 11:30 13:07 17:23 POC Glucose 298 H 311 H Lactic Acid 5.4 H* 07/20/18 07/21/18 07/21/18 21:55 05:50 07:56 POC Glucose 321 H 244 H Lactic Acid 3.8 H Microbiology 07/17/18 12:05 Blood - Peripheral Aerobic Blood Culture - Preliminary No growth in 3 days 07/17/18 12:05 Blood - Peripheral Anaerobic Blood Culture - Preliminary No growth in 3 days 07/17/18 12:00 Blood - Peripheral Aerobic Blood Culture - Preliminary No growth in 3 days 07/17/18 12:00 Blood - Peripheral Anaerobic Blood Culture - Preliminary No growth in 3 days Assessment and Plan - Assessment (1) Asthma exacerbation Code(s): J45.901 - Unspecified asthma with (acute) exacerbation Status: Acute (2) COPD exacerbation Code(s): J44.1 - Chronic obstructive pulmonary disease with (acute) exacerbation Status: Acute (3) Acute respiratory distress Code(s): R06.03 - Acute respiratory distress Status: Acute (4) Hypoxia Code(s): R09.02 - Hypoxemia Status: Acute - Plan 63-year-old female with Respiratory distress-Resolved Asthma/COPD exacerbation-Resolved Hypoxemia X-ray with finding of Suspect artifactually increased opacity in the left lung base Currently on Solu-Medrol 40 mg IV every 8 hour; however will switch to PO Prednisone Currently on Spiriva,Symbicort, DuoNeb scheduled and as needed, Mucinex, azithromycin 250 mg daily Maintain oxygen saturation above 92% Appreciate input from pulmonary medicine Lactic acidosis Lactic acid trending down, today down to 3.8 Continue to hold Metformin Hypokalemia Resolved with replacement, continue to monitor electrolyte Recent diagnosis of community-acquired pneumonia Continue treatment with antibiotic History of diabetes type 2 Continue medium sliding scale insulin; Will discharge on oral anti-glycemic agent. Start glipizide 10 mg twice daily Continue to hold metformin secondary to lactic acidosis Other chronic medical conditions Continue outpatient medications DVT prophylaxis: Bilateral SCDs PT to treat and consult
[2018-07-21 10:46] VITALS: BP 118/78; PULSE 84; RESP 18; TEMP 97.8
== END 2018-07-21 13:14 | disposition home health service (06) ==
LOC: PHED 11:25 → PHEDA 14:10 → INTOOBSV 14:10 → PHEDA 15:15 → PH3 15:35
PROVIDERS: ADMIT Hospitalist; ATTEND Hospitalist